=== PATIENT | male | born 1975 | race Caucasian/White ===

== ENCOUNTER 2017-06-01 11:16 | Emergency (ER) | payer SELFPAY ==
[~2017-06-01] VITALS: Ht 170.2 cm; Wt 83.9 kg
[~2017-06-01 11:16] MED LIST: AUGMENTIN 875-1 EAC2 PO; NO HOME MEDICATION XX; NORCO 5-325 TA1 EACH PO; PERCOCET 5-3251 EACH PO
[2017-06-01 11:30] LABS: URINE BILIRUBIN NEGATIVE (NEG); URINE BLOOD NEGATIVE (NEG); URINE GLUCOSE (UA) NEGATIVE (NEG); URINE KETONE NEGATIVE (NEG); URINE LEUKOCYTE ESTERASE NEGATIVE (NEG); URINE NITRITE POSITIVE (NEG); URINE PROTEIN NEGATIVE (NEG)
[2017-06-01 11:33] LABS: URINE APPEARANCE CLEAR; URINE COLOR YELLOW
[2017-06-01 11:48] LABS: URINE AMORPHOUS 1+; URINE BACTERIA 1+; URINE EPITHELIAL CELLS 0 /[HPF] (0-10); URINE RBC RARE /[HPF] (0-5); URINE WBC 0 /[HPF] (0-5)
[2017-06-01] MEDS ORDERED: PREDNISONE10 M1 PO (12:29)
== END 2017-06-01 13:11 ==
LOC: EDMED 11:16
PROVIDERS: Emergency Medicine
DX: M54.41 Lumbago with sciatica, right side (principal); Z88.6 Allergy status to analgesic agent; Z87.891 Personal history of nicotine dependence
CPT/HCPCS: J1100